=== PATIENT | female | born 1990 | race Caucasian/White ===

== ENCOUNTER 2021-05-23 10:09 | Emergency (ER) | payer OTHER ==
[2021-05-23 12:57] LABS: HEMOGLOBIN 13.8 gm/dl (12.3-15.3); RED BLOOD COUNT 5.41 M/UL (4.00-5.10); WHITE BLOOD COUNT 11.2 K/UL (4.5-11.0)
[2021-05-23 13:44] LABS: BUN/CREATININE RATIO 17 (0-10)
[2021-05-23] MEDS ORDERED: ZOFRAN ODT 4 MG4 MG SL (14:35)
[2021-05-23] MEDS ORDERED: PHENERGAN 25 MG25 M1 PO (14:35)
[2021-05-23] MEDS ORDERED: BENTYL 20MG TAB20 MG PO (14:35)
== END 2021-05-23 14:58 | disposition home or self-care (01) ==
LOC: ER1 10:09
PROVIDERS: Physician Assistant Medical
DX: U07.1 COVID-19 (principal); F41.9 Anxiety disorder, unspecified; Z90.49 Acquired absence of other specified parts of digestive tract
CPT/HCPCS: 80053; 81001; 82150; 83690; 84703; 85025; 96374; 96375; 99284; C9113; J2405